=== PATIENT | male | born 1950 | race Caucasian/White ===

== ENCOUNTER 2016-08-16 15:55 | Emergency (ER) | payer MEDICARE, BC ==
[~2016-08-16] VITALS: Ht 193 cm; Wt 140.0 kg
[~2016-08-16 15:55] MED LIST: ALLO300T2 PO; ASCO500C PO; ATEN50TA PO; CETI10CH CHEW; CLIN1CAP6 PO; CLOB0.055 TOPICAL; GLIP-157 PO; IBUP-232 PO; LEVO112T2 PO; METF500T4 PO; METR28.4 TOPICAL; MOME0.1O20 TOPICAL; MULT1TAB84 PO; OMEP40CA2 PO; TAMS0.4C4 PO; [UNRECOGNIZED DRUG - CODE] IM
[2016-08-16 16:04] VITALS: BP 157/94; PULSE 59; RESP 18; TEMP 98.1; O2SAT 98
--- NOTE | 2016-08-16 16:35 | PD ---
HPI Chief Complaint: Pain: Acute or Chronic Time Seen by Provider: 16:15 Travel History International Travel<30 days: No Contact w/Intl Traveler<30days: No Traveled to known affect area: No History of Present Illness HPI 65-year-old male presents emergency department for evaluation of right-sided low back pain radiating down into the right thigh. Symptom onset 5 days. Patient has a history of sciatica. He reports similar symptoms with previous sciatic flares. He reports he was seen by his PCP 4 days ago and put on diclofenac and Flexeril. He reports the pain has persisted. He is requesting something stronger for the pain. He denies fever, incontinence, numbness/ tingling/weakness in lower extremities. PFSH Past Medical History Medical History: Denies Significant Hx Diabetes: Yes (METFORMIN) Patient Takes Glucophage: Yes Diminished Hearing: No GERD: Yes Gout: Yes Integumentary: Yes (plaque psoriasis) Thyroid Disease: Yes Past Surgical History Other Surgery: Yes (pilonidal cyst, adult circumcision ) Social History Alcohol Use: Yes (occ) Tobacco Use: No (quit 28 years ago) Substance Use: No Allergies-Medications (Allergen,Severity, Reaction): Coded Allergies: Darvocet-N 100 (Verified Allergy, Severe, DIFFICULTY BREATHING, 08/16/16) Hydrocodone (Verified Allergy, Severe, DIFFICULTY BREATHING, 08/16/16) Codeine (Verified Adverse Reaction, Intermediate, NIGHTMARES, 08/16/16) Reported Meds & Prescriptions Reported Meds & Active Scripts Active Ibuprofen 600 Mg Tab 600 Mg PO Q6H PRN Reported Glipizide XL (Glipizide) 5 Mg Bisi 5 Mg PO DAILY Take with breakfast or first main meal of the day Cetirizine (Cetirizine HCl) 10 Mg Chew 10 Mg CHEW DAILY Clobetasol Topical (Clobetasol Propionate) 0.05% Cream 1 Applic TOPICAL BID Mometasone Topical (Mometasone Furoate) 0.01 % Oint 1 Applic TOPICAL DAILY Tamsulosin (Tamsulosin HCl) 0.4 Mg Cap 0.4 Mg PO HS Allopurinol 300 Mg Tab 300 Mg PO DAILY Atenolol 50 Mg Tab 50 Mg PO DAILY Levothyroxine (Levothyroxine Sodium) 112 Mcg Tab 224 Mcg PO DAILY Omeprazole 40 Mg Cap 40 Mg PO DAILY Metformin ER (Metformin HCl) 500 Mg Bisi 500 Mg PO BID With evening meal Depo-Testosterone Inj (Testosterone Cypionate) 100 Mg/Ml Inj 200 Mg IM ONCE PRN Review of Systems Except as stated in HPI: all other systems reviewed are Neg General / Constitutional: No: Fever Eyes: No: Visual changes HENT: No: Headaches Cardiovascular: No: Chest Pain or Discomfort Respiratory: No: Shortness of Breath Gastrointestinal: No: Abdominal Pain Genitourinary: No: Dysuria Musculoskeletal: Positive: Pain (left low back radiating down into the left thigh) Physical Exam Narrative GENERAL: Alert, well-appearing male. No acute distress. Patient grimaces and appears uncomfortable when repositioning in bed. SKIN: Focused skin assessment warm/dry. HEAD: Atraumatic. Normocephalic. NECK: Trachea midline. No JVD. CARDIOVASCULAR: Regular rate and rhythm. No murmur appreciated. RESPIRATORY: No accessory muscle use. Clear to auscultation. Breath sounds equal bilaterally. GASTROINTESTINAL: Abdomen soft, non-tender, nondistended. Hepatic and splenic margins not palpable. MUSCULOSKELETAL: No obvious deformities. No clubbing. No cyanosis. No edema. Patient reports pain in the left lateral thigh originating in the low back. The area is nontender. BACK: No thoracic or lumbar midline spine tenderness. No CVA tenderness. Negative straight leg raise. NEUROLOGICAL: Awake and alert. No obvious cranial nerve deficits. Motor grossly within normal limits. Normal speech. 5 out of 5 strength in lower extremities. Normal sensation and extremities. Patient ambulates with a steady gait. PSYCHIATRIC: Appropriate mood and affect; insight and judgment normal. Data Data Last Documented VS Vital Signs Date Time Temp Pulse Resp B/P Pulse Ox O2 Delivery O2 Flow Rate FiO2 08/16/16 16:04 98.1 59 18 157/94 98 MDM Medical Decision Making Medical Screen Exam Complete: Yes Emergency Medical Condition: Yes Differential Diagnosis Sciatica, lumbar strain, herniated disc, Narrative Course 65-year-old male with chief complaint of left low back pain radiating down into the thigh. Patient has history of sciatica. He reports similar symptoms with previous sciatic flares. He was seen by his PCP put on diclofenac and Flexeril. He reports minimal symptom relief. He is requesting something stronger. On exam patient appears quite uncomfortable with movement. He has no spinal tenderness to palpation. His neuro exam is intact. He is ambulating without difficulty. Patient has multiple allergies pain medications. The plan will be to change the patient's muscle relaxer to Robaxin and add Ultram as needed for pain. Patient instructed to continue diclofenac. He agrees to plan. He will follow up with his PCP tomorrow. Return precautions discussed. Diagnosis Primary Impression: Sciatica Qualified Code: M54.32 - Sciatica of left side Referrals: Primary Care Physician Additional Instructions: Continue the diclofenac as prescribed. Discontinue the cyclobenzaprine and start the Robaxin. If he still had continued pain he may take the Ultram 1 tab every 6 hours as needed for pain. Make an appointment for follow-up with her primary care doctor for this week. Return to emergency department if he developed new or worsening symptoms. Scripts Tramadol (Ultram)50 Mg Tab50 Mg PO Q6H PRN (PAIN) #12 TAB Ref 0 Prov:Louisa Pena 08/16/16 Methocarbamol (Robaxin)500 Mg Dgn460 Mg PO TID PRN (MUSCLE SPASM) #15 TAB Prov:Louisa Pena 08/16/16 Disposition: 01 DISCHARGE HOME Condition: Stable Louisa Pena Aug 16, 2016 16:34
[2016-08-16] MEDS ORDERED: ROBA500T PO (16:42)
[2016-08-16] MEDS ORDERED: ULTR50TA5 PO (16:42)
[2016-08-16] MEDS ORDERED: KETOROLAC TROMETHAMINE 60 MG/2 ML (IM) VIAL IM ONE (16:45)
== END 2016-08-16 17:23 | disposition home or self-care (01) ==
LOC: PHEFT 15:55
DX: M54.32 Sciatica, left side (principal); E11.9 Type 2 diabetes mellitus without complications; E07.9 Disorder of thyroid, unspecified; Z79.84 Long term (current) use of oral hypoglycemic drugs; Z87.19 Personal history of other diseases of the digestive system; Z87.39 Personal history of other diseases of the musculoskeletal system and connective tissue; Z87.2 Personal history of diseases of the skin and subcutaneous tissue
CPT/HCPCS: 96372; 99284; J1885

== ENCOUNTER 2016-09-10 09:47 | Emergency (ER) | payer MEDICARE, BC ==
[~2016-09-10] VITALS: Ht 194.3 cm; Wt 140.0 kg
[~2016-09-10 09:47] MED LIST changes: -ASCO500C PO; -CLIN1CAP6 PO; -METR28.4 TOPICAL; -MULT1TAB84 PO; +ROBA500T PO; +ULTR50TA5 PO
[2016-09-10 09:49] VITALS: BP 128/79; PULSE 105; RESP 18; TEMP 98.3; O2SAT 98
[2016-09-10] MEDS ORDERED: KETOROLAC TROMETHAMINE 30 MG/ML (IVP) VIAL IVP ONE (10:30)
[2016-09-10] MEDS ORDERED: CLINDAMYCIN INJ 600 MG in SODIUM CHLORIDE 0.9% INJ 100 ML IV ONE (10:30)
[2016-09-10] MEDS ORDERED: SODIUM CHLORID 0.9% 500 ML INJ 500 ML IV ONE (10:30)
--- NOTE | 2016-09-10 10:31 | PD ---
HPI Chief Complaint: Skin Problem Time Seen by Provider: 10:15 Travel History International Travel<30 days: No Contact w/Intl Traveler<30days: No Traveled to known affect area: No History of Present Illness HPI 65yo M with PMH of DM presents to the ED with c/o right lower extremity redness and pain that started today. States temperature of 99F today. Has some nausea. Denies any chest pain, sob, vomiting, abdominal pain, focal weakness or numbness. Denies any trauma. Pt had similar cellulitis in right leg last year. PFSH Past Medical History Hx Anticoagulant Therapy: No Diabetes: Yes (TYPE 2) Patient Takes Glucophage: Yes (09/09/16 1700) Diminished Hearing: No GERD: Yes Gout: Yes Integumentary: Yes (plaque psoriasis) Thyroid Disease: Yes Tetanus Vaccination: Unknown Past Surgical History Other Surgery: Yes (pilonidal cyst, adult circumcision ) Social History Alcohol Use: Yes (occ) Tobacco Use: No (quit 28 years ago) Substance Use: No Allergies-Medications (Allergen,Severity, Reaction): Coded Allergies: Darvocet-N 100 (Verified Allergy, Severe, DIFFICULTY BREATHING, 09/10/16) Hydrocodone (Verified Allergy, Severe, DIFFICULTY BREATHING, 09/10/16) Codeine (Verified Adverse Reaction, Intermediate, NIGHTMARES, 09/10/16) Reported Meds & Prescriptions Reported Meds & Active Scripts Active Ibuprofen 400 Mg Tab 400 Mg PO Q8H PRN Clindamycin (Clindamycin HCl) 300 Mg Cap 300 Mg PO Q6H 7 Days Ultram (Tramadol HCl) 50 Mg Tab 50 Mg PO Q6H PRN Robaxin (Methocarbamol) 500 Mg Tab 500 Mg PO TID PRN Ibuprofen 600 Mg Tab 600 Mg PO Q6H PRN Reported Glipizide XL (Glipizide) 5 Mg Bisi 5 Mg PO DAILY Take with breakfast or first main meal of the day Cetirizine (Cetirizine HCl) 10 Mg Chew 10 Mg CHEW DAILY Clobetasol Topical (Clobetasol Propionate) 0.05% Cream 1 Applic TOPICAL BID Mometasone Topical (Mometasone Furoate) 0.01 % Oint 1 Applic TOPICAL DAILY Tamsulosin (Tamsulosin HCl) 0.4 Mg Cap 0.4 Mg PO HS Allopurinol 300 Mg Tab 300 Mg PO DAILY Atenolol 50 Mg Tab 50 Mg PO DAILY Levothyroxine (Levothyroxine Sodium) 112 Mcg Tab 224 Mcg PO DAILY Omeprazole 40 Mg Cap 40 Mg PO DAILY Metformin ER (Metformin HCl) 500 Mg Bisi 500 Mg PO BID With evening meal Depo-Testosterone Inj (Testosterone Cypionate) 100 Mg/Ml Inj 200 Mg IM ONCE PRN Review of Systems Except as stated in HPI: all other systems reviewed are Neg Physical Exam Narrative GENERAL: 65yo M not in distress. SKIN: Focused skin assessment warm/dry. HEAD: Atraumatic. Normocephalic. CARDIOVASCULAR: Mild tachycardia at 100bpm. No murmur appreciated. RESPIRATORY: No accessory muscle use. Clear to auscultation. Breath sounds equal bilaterally. GASTROINTESTINAL: Abdomen soft, non-tender, nondistended. MUSCULOSKELETAL: RLE: +Medial erythema and warmth in tibia. Soft compartment. DP 2+. FROM right knee and ankle. NEUROLOGICAL: Awake and alert. No obvious cranial nerve deficits. Motor grossly within normal limits. Normal speech. PSYCHIATRIC: Appropriate mood and affect; insight and judgment normal. Data Data Last Documented VS Vital Signs Date Time Temp Pulse Resp B/P Pulse Ox O2 Delivery O2 Flow Rate FiO2 09/10/16 11:39 98 09/10/16 11:39 99.0 16 121/71 99 Room Air Orders Basic Metabolic Panel (Bmp) (09/10/16 10:24) Complete Blood Count With Diff (09/10/16 10:24) Blood Culture (09/10/16 10:24) Iv Access Insert/Monitor (09/10/16 10:24) Ketorolac Inj (Toradol Inj) (09/10/16 10:30) Clindamycin Inj (Cleocin Inj) (09/10/16 10:30) Lactic Acid Sepsis Protocol (09/10/16 10:24) Sodium Chlorid 0.9% 500 Ml Inj (Ns 500 M (09/10/16 10:30) Ondansetron Inj (Zofran Inj) (09/10/16 10:45) Sodium Chlor 0.9% 1000 Ml Inj (Ns 1000 M (09/10/16 11:30) Labs Laboratory Tests Test 09/10/16 10:45 White Blood Count 13.1 TH/MM3 Red Blood Count 5.46 MIL/MM3 Hemoglobin 16.7 GM/DL Hematocrit 49.3 % Mean Corpuscular Volume 90.3 FL Mean Corpuscular Hemoglobin 30.6 PG Mean Corpuscular Hemoglobin 33.9 % Concent Red Cell Distribution Width 13.7 % Platelet Count 139 TH/MM3 Mean Platelet Volume 8.7 FL Neutrophils (%) (Auto) 89.5 % Lymphocytes (%) (Auto) 4.7 % Monocytes (%) (Auto) 3.6 % Eosinophils (%) (Auto) 0.3 % Basophils (%) (Auto) 1.9 % Neutrophils # (Auto) 11.8 TH/MM3 Lymphocytes # (Auto) 0.6 TH/MM3 Monocytes # (Auto) 0.5 TH/MM3 Eosinophils # (Auto) 0.0 TH/MM3 Basophils # (Auto) 0.2 TH/MM3 CBC Comment DIFF FINAL Differential Comment Sodium Level 138 MEQ/L Potassium Level 4.0 MEQ/L Chloride Level 101 MEQ/L Carbon Dioxide Level 28.2 MEQ/L Anion Gap 9 MEQ/L Blood Urea Nitrogen 19 MG/DL Creatinine 1.30 MG/DL Estimat Glomerular Filtration 55 ML/MIN Rate Random Glucose 134 MG/DL Lactic Acid Level 2.6 mmol/L Calcium Level 9.1 MG/DL [facility] Medical Decision Making Medical Screen Exam Complete: Yes Emergency Medical Condition: Yes Interpretation(s) Laboratory Tests Test 09/10/16 10:45 White Blood Count 13.1 TH/MM3 (4.0-11.0) Red Blood Count 5.46 MIL/MM3 (4.50-5.90) Hemoglobin 16.7 GM/DL (13.0-17.0) Hematocrit 49.3 % (39.0-51.0) Mean Corpuscular Volume 90.3 FL (80.0-100.0) Mean Corpuscular Hemoglobin 30.6 PG (27.0-34.0) Mean Corpuscular Hemoglobin 33.9 % Concent (32.0-36.0) Red Cell Distribution Width 13.7 % (11.6-17.2) Platelet Count 139 TH/MM3 (150-450) Mean Platelet Volume 8.7 FL (7.0-11.0) Neutrophils (%) (Auto) 89.5 % (16.0-70.0) Lymphocytes (%) (Auto) 4.7 % (9.0-44.0) Monocytes (%) (Auto) 3.6 % (0.0-8.0) Eosinophils (%) (Auto) 0.3 % (0.0-4.0) Basophils (%) (Auto) 1.9 % (0.0-2.0) Neutrophils # (Auto) 11.8 TH/MM3 (1.8-7.7) Lymphocytes # (Auto) 0.6 TH/MM3 (1.0-4.8) Monocytes # (Auto) 0.5 TH/MM3 (0-0.9) Eosinophils # (Auto) 0.0 TH/MM3 (0-0.4) Basophils # (Auto) 0.2 TH/MM3 (0-0.2) CBC Comment DIFF FINAL Differential Comment Sodium Level 138 MEQ/L (136-145) Potassium Level 4.0 MEQ/L (3.5-5.1) Chloride Level 101 MEQ/L (98-107) Carbon Dioxide Level 28.2 MEQ/L (21.0-32.0) Anion Gap 9 MEQ/L (5-15) Blood Urea Nitrogen 19 MG/DL (7-18) Creatinine 1.30 MG/DL (0.60-1.30) Estimat Glomerular Filtration 55 ML/MIN (>89) Rate Random Glucose 134 MG/DL (74-106) Lactic Acid Level 2.6 mmol/L (0.4-2.0) Calcium Level 9.1 MG/DL (8.5-10.1) Differential Diagnosis Cellulitis vs. sepsis from cellulitis Narrative Course 65yo M with DM here with redness and pain in right leg consistent with cellulitis. Pt had some nausea and was given zofran. Labs reviewed, leukocytosis at 13.1. Glucose 134. Lactic acid is elevated at 2.6. Pt given NS IVF, toradol and clindamycin IV. Pt reevaluated at bedside and states pain has improved and no longer nauseous. Pt is tolerating PO. I initially wanted to admit pt for IV antibiotics since pt meets sepsis criteria but pt states he wants to try outpatient management first and will return immediately if anything worsens. Pt is well appearing and after joint decision making, agreed to have pt try outpatient antibiotics first since he has not had any and is reliable. Pt is to return to the ED if symptoms worsen. Area of cellulitis is marked with a skin marker. Diagnosis Primary Impression: Cellulitis of right lower extremity Patient Instructions: General Instructions Departure Forms: Tests/Procedures Additional Instructions: Please follow up with your PMD in 1-2 days. Return to the ED immediately if symptoms worsen. Med/Other Pt SpecificInfo: Prescription(s) given Scripts Clindamycin 300 Mg Tet160 Mg PO Q6H 7 Days Ref 0 Prov:Domitila Olsen DO 09/10/16 Disposition: 01 DISCHARGE HOME Condition: Stable Domitila Olsen DO Sep 10, 2016 10:31 Domitila Olsen DO Sep 10, 2016 10:31
[2016-09-10] MEDS ORDERED: ONDANSETRON HCL 4 MG/2 ML VIAL IV PUSH ONE (10:45)
[2016-09-10 10:56] LABS: AUTOMATED NEUTROPHIL # 11.8 TH/MM3 (1.8-7.7); BASOPHIL # 0.2 TH/MM3 (0-0.2); BASOPHIL % 1.9 % (0.0-2.0); EOSINOPHIL % 0.3 % (0.0-4.0); HEMATOCRIT 49.3 % (39.0-51.0); HEMO FLAGS DIFF FINAL; LYMPH % 4.7 % (9.0-44.0); LYMPHOCYTE # 0.6 TH/MM3 (1.0-4.8); MEAN CELL VOLUME 90.3 FL (80.0-100.0); MEAN CORPUSCULAR HEMOGLOBIN 30.6 PG (27.0-34.0); MEAN CORPUSCULAR HGB CONC 33.9 % (32.0-36.0); MONO % 3.6 % (0.0-8.0); NEUT % 89.5 % (16.0-70.0); PLATELET COUNT 139 TH/MM3 (150-450); RED BLOOD COUNT 5.46 MIL/MM3 (4.50-5.90); RED CELL DISTRIBUTION WIDTH 13.7 % (11.6-17.2); WHITE BLOOD COUNT 13.1 TH/MM3 (4.0-11.0)
[2016-09-10 11:10] LABS: BICARBONATE 28.2 MEQ/L (21.0-32.0)
[2016-09-10] MEDS ORDERED: SODIUM CHLOR 0.9% 1000 ML INJ 1,000 ML IV ONE (11:30)
[2016-09-10 11:39] VITALS: BP 121/71; PULSE 96; RESP 16; TEMP 99; O2SAT 99
[2016-09-10] MEDS ORDERED: CLIN1CAP6 PO (12:24)
[2016-09-10] MEDS ORDERED: IBUP400T20 PO (12:24)
[2016-09-10 12:53] LABS: LACTIC ACID GHOST NOT REPORTABLE
== END 2016-09-10 12:36 | disposition home or self-care (01) ==
LOC: PHED 09:47
DX: L03.115 Cellulitis of right lower limb (principal); B95.7 Other staphylococcus as the cause of diseases classified elsewhere; B95.4 Other streptococcus as the cause of diseases classified elsewhere; E11.9 Type 2 diabetes mellitus without complications; Z79.84 Long term (current) use of oral hypoglycemic drugs; Z79.899 Other long term (current) drug therapy
CPT/HCPCS: 80048; 83605; 85025; 86403; 87040; 87205; 96365; 96375; 99284; J1885; J2405; J7040

== ENCOUNTER 2016-09-12 14:58 | Inpatient (IN) | payer MEDICARE, BC ==
[~2016-09-12] VITALS: Ht 194.3 cm; Wt 138.5 kg
[~2016-09-12 14:58] MED LIST changes: +CLIN1CAP6 PO
[2016-09-12 15:01] VITALS: BP 128/75; PULSE 60; RESP 20; TEMP 98.2; O2SAT 97
--- NOTE | 2016-09-12 15:08 | PD ---
HPI Chief Complaint: Skin Problem Time Seen by Provider: 15:05 Travel History International Travel<30 days: No Contact w/Intl Traveler<30days: No Traveled to known affect area: No History of Present Illness HPI 65-year-old male came to the emergency room with history of right lower extremity redness and swelling that has been going on for past 4 days. Patient was seen in the emergency room last which was 2 days ago for this and other times the blood test showed elevated WBC and lactic acid. Patient was asked to stay but he insisted that he wanted to go home. He was discharged home on clindamycin. Patient says that he's been taking clindamycin like he supposed to but the redness is spreading even more. No history of fever or chills but she decided to come back to be admitted at this time. Patient has history of diabetes and his last sugar today was in the 130s. His vital signs were otherwise stable. PFSH Past Medical History Narrative Medical List of his past medical, surgical, social and family history is reviewed from the nursing note. Hx Anticoagulant Therapy: No Diabetes: Yes (TYPE 2) Diminished Hearing: Yes (Hearing Aides) GERD: Yes Gout: Yes Integumentary: Yes (plaque psoriasis) Thyroid Disease: Yes Past Surgical History Other Surgery: Yes (pilonidal cyst, adult circumcision ) Social History Alcohol Use: Yes (occ) Tobacco Use: No (quit 28 years ago) Substance Use: No Allergies-Medications (Allergen,Severity, Reaction): Coded Allergies: Darvocet-N 100 (Verified Allergy, Severe, DIFFICULTY BREATHING, 09/12/16) Codeine (Verified Adverse Reaction, Intermediate, NIGHTMARES, 09/12/16) Comments List of his allergies reviewed from the nursing note. Reported Meds & Prescriptions Reported Meds & Active Scripts Active Clindamycin (Clindamycin HCl) 300 Mg Cap 300 Mg PO Q6H 7 Days Reported Lortab (Hydrocodone-Acetaminophen) 5-325 Mg Tab 1 Tab PO HS Diclofenac Sodium DR (Diclofenac Sodium) 75 Mg Tabdr 75 Mg PO BID Glipizide XL (Glipizide) 5 Mg Bisi 5 Mg PO DAILY Take with breakfast or first main meal of the day Cetirizine (Cetirizine HCl) 10 Mg Chew 10 Mg CHEW DAILY Clobetasol Topical (Clobetasol Propionate) 0.05% Cream 1 Applic TOPICAL BID Mometasone Topical (Mometasone Furoate) 0.01 % Oint 1 Applic TOPICAL DAILY Tamsulosin (Tamsulosin HCl) 0.4 Mg Cap 0.4 Mg PO HS Allopurinol 300 Mg Tab 300 Mg PO DAILY Atenolol 50 Mg Tab 50 Mg PO DAILY Levothyroxine (Levothyroxine Sodium) 112 Mcg Tab 224 Mcg PO DAILY Omeprazole 40 Mg Cap 40 Mg PO DAILY Metformin ER (Metformin HCl) 500 Mg Bisi 500 Mg PO BID With evening meal Depo-Testosterone Inj (Testosterone Cypionate) 100 Mg/Ml Inj 200 Mg IM ONCE PRN Narrative Medication List of his home medications reviewed from the nursing note. Review of Systems Except as stated in HPI: all other systems reviewed are Neg Physical Exam Narrative GENERAL: Awake, alert, obese, moderate distress SKIN: Focused skin assessment warm/dry. Right lower extremity from 2 inches below the knee all the way up to the ankle there is significant erythema and edema. The skin feels warm to touch. No crepitus. HEAD: Atraumatic. Normocephalic. EYES: Pupils equal and round. No scleral icterus. No injection or drainage. ENT: No nasal bleeding or discharge. Mucous membranes pink and moist. NECK: Trachea midline. No JVD. CARDIOVASCULAR: Regular rate and rhythm. No murmur appreciated. RESPIRATORY: No accessory muscle use. Clear to auscultation. Breath sounds equal bilaterally. GASTROINTESTINAL: Abdomen soft, non-tender, nondistended. Hepatic and splenic margins not palpable. MUSCULOSKELETAL: No obvious deformities. No clubbing. No cyanosis. No edema. NEUROLOGICAL: Awake and alert. No obvious cranial nerve deficits. Motor grossly within normal limits. Normal speech. PSYCHIATRIC: Appropriate mood and affect; insight and judgment normal. Data Data Last Documented VS Vital Signs Date Time Temp Pulse Resp B/P Pulse Ox O2 Delivery O2 Flow Rate FiO2 09/12/16 15:01 98.2 60 20 128/75 97 Orders Basic Metabolic Panel (Bmp) (09/12/16 15:13) Complete Blood Count With Diff (09/12/16 15:13) Blood Culture (09/12/16 15:13) ^ Saline Lock (09/12/16 15:13) C-Reactive Protein (Crp) (09/12/16 15:13) Lactic Acid (09/12/16 15:16) Piperacil-Tazo 4.5 Gm Premix (Zosyn 4.5 (09/12/16 15:30) Sodium Chlor 0.9% 1000 Ml Inj (Ns 1000 M (09/12/16 15:30) Sodium Chlor 0.9% 1000 Ml Inj (Ns 1000 M (09/12/16 15:30) Vancomycin Inj (Vancomycin Inj) (09/12/16 15:30) Admit Order (Ed Use Only) (09/12/16 15:44) Labs Laboratory Tests Test 09/12/16 09/12/16 15:20 15:30 White Blood Count 8.0 TH/MM3 Red Blood Count 4.80 MIL/MM3 Hemoglobin 14.8 GM/DL Hematocrit 43.4 % Mean Corpuscular Volume 90.4 FL Mean Corpuscular Hemoglobin 30.9 PG Mean Corpuscular Hemoglobin 34.2 % Concent Red Cell Distribution Width 14.3 % Platelet Count 137 TH/MM3 Mean Platelet Volume 8.9 FL Neutrophils (%) (Auto) 70.7 % Lymphocytes (%) (Auto) 17.3 % Monocytes (%) (Auto) 10.6 % Eosinophils (%) (Auto) 0.9 % Basophils (%) (Auto) 0.5 % Neutrophils # (Auto) 5.7 TH/MM3 Lymphocytes # (Auto) 1.4 TH/MM3 Monocytes # (Auto) 0.8 TH/MM3 Eosinophils # (Auto) 0.1 TH/MM3 Basophils # (Auto) 0.0 TH/MM3 CBC Comment DIFF FINAL Differential Comment Sodium Level 139 MEQ/L Potassium Level 3.9 MEQ/L Chloride Level 103 MEQ/L Carbon Dioxide Level 27.9 MEQ/L Anion Gap 8 MEQ/L Blood Urea Nitrogen 15 MG/DL Creatinine 1.40 MG/DL Estimat Glomerular Filtration 51 ML/MIN Rate Random Glucose 109 MG/DL Calcium Level 8.9 MG/DL C-Reactive Protein 16.50 MG/DL Lactic Acid Level 1.6 mmol/L [facility] Medical Decision Making Medical Screen Exam Complete: Yes Emergency Medical Condition: Yes Medical Record Reviewed: Yes Differential Diagnosis Cellulitis, outpatient treatment failure Narrative Course 3:23 PM I looked at his blood test results from 2 days ago. His blood culture both sets grew staph epidermidis and strep viridans. The sensitivities are pending. Given this I would be to admit him automatically. I have ordered IV vancomycin and Zosyn along with IV fluid as per sepsis protocol. Awaiting for the hospitalist call back. Critical Care Narrative Aggregate critical care time was 30 minutes. Time to perform other separately billable procedures was not included in the critical care time. My time did not include minutes spent treating any other patients simultaneously or on activities that did not directly contribute to the patient's treatment. The services I provided to this patient were to treat and/or prevent clinically significant deterioration that could result in: Sepsis, sepsis protocol, positive blood cultures I provided critical care services requiring my management, as noted below: Chart data review, documentation time, medication orders and management, vital sign assessments/reviewing monitor data, ordering and reviewing lab tests, ordering and interpreting/reviewing x-rays and diagnostic studies, care of the patient and discussion of the patient with the admitting physicians. Procedures EKG Prior to Arrival: No Diagnosis Primary Impression: Cellulitis of right lower extremity Additional Impressions: Sepsis Qualified Code: A40.8 - Other streptococcal sepsis Failure of outpatient treatment Positive blood cultures Admitting Information Admitting Physician Requests: Efraín Vera MD Sep 12, 2016 15:08
[2016-09-12] MEDS ORDERED: PIPERACIL-TAZO 4.5 GM PREMIX 100 ML IV ONE (15:30)
[2016-09-12] MEDS ORDERED: SODIUM CHLOR 0.9% 1000 ML INJ 1,000 ML IV ONE ×2 (15:30)
[2016-09-12] MEDS ORDERED: VANCOMYCIN INJ 1,000 MG in SODIUM CHLOR 0.9% 250 ML INJ 250 ML IV ONE (15:30)
[2016-09-12 15:43] LABS: AUTOMATED NEUTROPHIL # 5.7 TH/MM3 (1.8-7.7); BASOPHIL % 0.5 % (0.0-2.0); EOSINOPHIL # 0.1 TH/MM3 (0-0.4); EOSINOPHIL % 0.9 % (0.0-4.0); HEMATOCRIT 43.4 % (39.0-51.0); HEMO FLAGS DIFF FINAL; LYMPH % 17.3 % (9.0-44.0); LYMPHOCYTE # 1.4 TH/MM3 (1.0-4.8); MEAN CELL VOLUME 90.4 FL (80.0-100.0); MEAN CORPUSCULAR HEMOGLOBIN 30.9 PG (27.0-34.0); MEAN CORPUSCULAR HGB CONC 34.2 % (32.0-36.0); MONO % 10.6 % (0.0-8.0); NEUT % 70.7 % (16.0-70.0); PLATELET COUNT 137 TH/MM3 (150-450); RED CELL DISTRIBUTION WIDTH 14.3 % (11.6-17.2)
[2016-09-12 15:55] LABS: POTASSIUM 3.9 MEQ/L (3.5-5.1)
[2016-09-12 15:58] LABS: BICARBONATE 27.9 MEQ/L (21.0-32.0)
[2016-09-12] MEDS ORDERED: NALOXONE HCL 0.4 MG/ML AMP IV PRN (16:15)
[2016-09-12] MEDS ORDERED: SODIUM CHLORIDE 0.9% FLUSH 10 ML FLUSH IV FLUSH PRN (16:15)
[2016-09-12] MEDS ORDERED: VANCOMYCIN INJ 1,000 MG in SODIUM CHLOR 0.9% 250 ML INJ 250 ML IV SCH (16:15)
[2016-09-12] MEDS ORDERED: DEXTROSE 50% IN WATER 50 ML VIAL(D50) IV PRN (16:15)
[2016-09-12] MEDS ORDERED: Vancomycin Consult Pharmacy 1 EA OTHER SCH (16:15)
[2016-09-12] MEDS ORDERED: GLUCAGON 1 MG/ML VIAL OTHER PRN (16:15)
[2016-09-12] MEDS ORDERED: ONDANSETRON HCL 4 MG/2 ML VIAL IVP PRN (16:15)
--- NOTE | 2016-09-12 16:29 | HHI.HP ---
[facility] Service [facility] Primary Care Physician Non-Staff Admission Diagnosis cellulitis, outpatient treatment failure, positive blood culture Diagnoses: Chief Complaint: right leg swelling and pain Travel History International Travel<30 Days: No Contact w/Intl Traveler <30 Da: No Traveled to Known Affected Are: No History of Present Illness Patient is a 65 year male with DM2 who had 3 days of severe right leg pain and swelling. Pain is worse with ambulation and with lifting the leg. Pain is better with rest. The leg is grossly swollen with bullous cellulitic changes in the lateral aspect. At home fere of up to 102 is described with associated chills and nausea. He was ester in the ER 09/10 and prescribed clindamycin PO but hte pain is worse and the ankle is more red. he has been admitted to the hospital for IV antibiotics Review of Systems Constitutional: DENIES: Diaphoretic episodes, Fatigue, Fever, Weight gain, Weight loss, Chills, Dizziness, Change in appetite, Night Sweats Endocrine: DENIES: Heat/cold intolerance, Polydipsia, Polyuria, Polyphagia Eyes: DENIES: Blurred vision, Diplopia, Eye inflammation, Eye pain, Vision loss , Photosensitivity, Double Vision Ears, nose, mouth, throat: DENIES: Tinnitus, Hearing loss, Vertigo, Nasal discharge, Oral lesions, Throat pain, Hoarseness, Ear Pain, Running Nose, Epistaxis, Sinus Pain, Toothache, Odynophagia Respiratory: DENIES: Apneas, Cough, Snoring, Wheezing, Hemoptysis, Sputum production, Shortness of breath Cardiovascular: COMPLAINS OF: Lower Extremity Edema, DENIES: Chest pain, Palpitations, Syncope, Dyspnea on Exertion, PND, Orthopnea, Claudication Gastrointestinal: DENIES: Abdominal pain, Black stools, Bloody stools, Constipation, Diarrhea, Nausea, Vomiting, Difficulty Swallowing, Anorexia Genitourinary: DENIES: Sexual dysfunction, Urinary frequency, Urinary incontinence, Urgency, Hematuria, Dysuria, Nocturia, Penile Discharge, Testicular Pain, Testicular Swelling Musculoskeletal: DENIES: Joint pain, Muscle aches, Stiffness, Joint Swelling, Back pain, Neck pain Integumentary: DENIES: Abnormal pigmentation, Nail changes, Pruritus, Rash Hematologic/lymphatic: DENIES: Bruising, Lymphadenopathy Immunologic/allergic: DENIES: Eczema, Urticaria Neurologic: DENIES: Abnormal gait, Headache, Localized weakness, Paresthesias, Seizures, Speech Problems, Tremor, Poor Balance Psychiatric: DENIES: Anxiety, Confusion, Mood changes, Depression, Hallucinations, Agitation, Suicidal Ideation, Homicidal Ideation, Delusions Except as stated in HPI: all other systems reviewed are Neg Past Family Social History Past Medical History dm2 hypertension psoriasis Past Surgical History arthroscopy Reported Medications Recently prescribed clindamycin Glipizide XL (Glipizide) 5 Mg Bisi 5 Mg PO DAILY Cetirizine (Cetirizine HCl) 10 Mg Chew 10 Mg CHEW DAILY Clobetasol Topical (Clobetasol Propionate) 0.05% Cream 1 Applic TOPICAL BID Mometasone Topical (Mometasone Furoate) 0.01 % Oint 1 Applic TOPICAL DAILY Tamsulosin (Tamsulosin HCl) 0.4 Mg Cap 0.4 Mg PO HS Allopurinol 300 Mg Tab 300 Mg PO DAILY Atenolol 50 Mg Tab 50 Mg PO DAILY Levothyroxine (Levothyroxine Sodium) 112 Mcg Tab 224 Mcg PO DAILY Omeprazole 40 Mg Cap 40 Mg PO DAILY Metformin ER (Metformin HCl) 500 Mg Bisi 500 Mg PO BID With evening meal Depo-Testosterone Inj (Testosterone Cypionate) 100 Mg/Ml Inj 200 Mg IM ONCE Allergies: Coded Allergies: Darvocet-N 100 (Verified Allergy, Severe, DIFFICULTY BREATHING, 09/12/16) Codeine (Verified Adverse Reaction, Intermediate, NIGHTMARES, 09/12/16) Active Ordered Medications reviewed in the emr Family History mom had dm2 and htn Social History no tobacco occasional etoh Physical Exam Vital Signs Vital Signs Date Time Temp Pulse Resp B/P Pulse Ox O2 Delivery O2 Flow Rate FiO2 09/12/16 15:01 98.2 60 20 128/75 97 Physical Exam GENERAL: This is a well-nourished, well-developed patient, in no apparent distress. SKIN: No rashes, ecchymoses or lesions. Cool and dry. HEAD: Atraumatic. Normocephalic. No temporal or scalp tenderness. EYES: Pupils equal round and reactive. Extraocular motions intact. No scleral icterus. No injection or drainage. ENT: Nose without bleeding, purulent drainage or septal hematoma. Throat without erythema, tonsillar hypertrophy or exudate. Uvula midline. Airway patent. NECK: Trachea midline. No JVD or lymphadenopathy. Supple, nontender, no meningeal signs. CARDIOVASCULAR: Regular rate and rhythm without murmurs, gallops, or rubs. RESPIRATORY: Clear to auscultation. Breath sounds equal bilaterally. No wheezes , rales, or rhonchi. GASTROINTESTINAL: Abdomen soft, non-tender, nondistended. No hepato-splenomegaly , or palpable masses. No guarding. MUSCULOSKELETAL: Extremities without clubbing, cyanosis, or edema. No joint tenderness, effusion, or edema noted. No calf tenderness. Negative Homans sign bilaterally. NEUROLOGICAL: Awake and alert. Cranial nerves II through XII intact. Motor and sensory grossly within normal limits. Five out of 5 muscle strength in all muscle groups. Normal speech. Laboratory Laboratory Tests Test 09/12/16 09/12/16 15:20 15:30 White Blood Count 8.0 Red Blood Count 4.80 Hemoglobin 14.8 Hematocrit 43.4 Mean Corpuscular Volume 90.4 Mean Corpuscular Hemoglobin 30.9 Mean Corpuscular Hemoglobin 34.2 Concent Red Cell Distribution Width 14.3 Platelet Count 137 Mean Platelet Volume 8.9 Neutrophils (%) (Auto) 70.7 Lymphocytes (%) (Auto) 17.3 Monocytes (%) (Auto) 10.6 Eosinophils (%) (Auto) 0.9 Basophils (%) (Auto) 0.5 Neutrophils # (Auto) 5.7 Lymphocytes # (Auto) 1.4 Monocytes # (Auto) 0.8 Eosinophils # (Auto) 0.1 Basophils # (Auto) 0.0 CBC Comment DIFF FINAL Differential Comment Sodium Level 139 Potassium Level 3.9 Chloride Level 103 Carbon Dioxide Level 27.9 Anion Gap 8 Blood Urea Nitrogen 15 Creatinine 1.40 Estimat Glomerular Filtration 51 Rate Random Glucose 109 Calcium Level 8.9 Lactic Acid Level 1.6 Date/Time Procedure Status Source Growth 09/12/16 15:30 Aerobic Blood Culture Received Blood Peripheral Pending 09/12/16 15:30 Anaerobic Blood Culture Received Blood Peripheral Pending Result Diagram: 09/12/16 1520 09/12/16 1520 Assessment and Plan Problem List: (1) Cellulitis of right lower extremity ICD Code: L03.115 Status: Acute Plan: previously given Clindamycin 300 Mg po Q6H 09/10 now with increased redness and pain failed outpatient treatment Admit for iv abx follow repeat BC (2) DM2 (diabetes mellitus, type 2) ICD Code: E11.9 Status: Acute Plan: cont sliding scale for now Physician Certification 2 Midnight Certification Type: Admission for Inpatient Services Order for Inpatient Services The services are ordered in accordance with Medicare regulations or non- Medicare payer requirements, as applicable. In the case of services not specified as inpatient-only, they are appropriately provided as inpatient services in accordance with the 2-midnight benchmark. Estimated LOS (days): 3 3 days is the estimated time the patient will need to remain in the hospital, assuming treatment plan goals are met and no additional complications. Post-Hospital Plan: Jory Alexis MD Sep 12, 2016 16:29
[2016-09-12] MEDS ORDERED: HYDR-3533 PO (16:30)
[2016-09-12] MEDS ORDERED: DICL75TA PO (16:30)
[2016-09-12 17:00] VITALS: BP 112/51; PULSE 55; RESP 16; O2SAT 98
[2016-09-12 20:01] VITALS: BP 136/64; PULSE 55; RESP 18; O2SAT 99
[2016-09-12] MEDS: INSULIN ASPART SUPPLEMENTAL SCALE SQ SCH (21:00)
[2016-09-12] MEDS: SODIUM CHLORIDE 0.9% FLUSH 10 ML FLUSH IV FLUSH SCH (21:00)
[2016-09-12] MEDS: PIPERACIL-TAZO 3.375 GM PREMIX 50 ML IV SCH (22:00)
[2016-09-13] VITALS: BP 159/93; PULSE 56; RESP 18; TEMP 98; O2SAT 100
[2016-09-13] MEDS ORDERED: VANCOMYCIN INJ 2,500 MG in SODIUM CHLORID 0.9% 500 ML INJ 500 ML IV SCH ×2
[2016-09-13] MEDS: PIPERACIL-TAZO 3.375 GM PREMIX 50 ML IV SCH ×4 (04:31→23:05)
[2016-09-13] MEDS: INSULIN ASPART SUPPLEMENTAL SCALE SQ SCH ×4 (06:51→21:00)
[2016-09-13 07:55] VITALS: BP 158/78; PULSE 65; RESP 20; TEMP 97.5; O2SAT 95
[2016-09-13 08:21] LABS: AUTOMATED NEUTROPHIL # 4.8 TH/MM3 (1.8-7.7); BASOPHIL % 0.5 % (0.0-2.0); EOSINOPHIL # 0.1 TH/MM3 (0-0.4); EOSINOPHIL % 1.6 % (0.0-4.0); HEMATOCRIT 45.3 % (39.0-51.0); HEMO FLAGS DIFF FINAL; LYMPH % 20.1 % (9.0-44.0); LYMPHOCYTE # 1.5 TH/MM3 (1.0-4.8); MEAN CELL VOLUME 92.8 FL (80.0-100.0); MEAN CORPUSCULAR HEMOGLOBIN 29.6 PG (27.0-34.0); MEAN CORPUSCULAR HGB CONC 31.9 % (32.0-36.0); MONO % 12.4 % (0.0-8.0); NEUT % 65.4 % (16.0-70.0); PLATELET COUNT 146 TH/MM3 (150-450); RED BLOOD COUNT 4.88 MIL/MM3 (4.50-5.90); RED CELL DISTRIBUTION WIDTH 14.7 % (11.6-17.2); WHITE BLOOD COUNT 7.3 TH/MM3 (4.0-11.0)
[2016-09-13 08:24] LABS: BICARBONATE 26.5 MEQ/L (21.0-32.0)
[2016-09-13] MEDS: CETIRIZINE HCL 10 MG TAB PO SCH (08:33)
[2016-09-13] MEDS: ALLOPURINOL 300 MG TAB PO SCH (08:33)
[2016-09-13] MEDS: glipiZIDE 5 MG TAB PO SCH ×2 (08:34→16:22)
[2016-09-13] MEDS: ATENOLOL 50 MG TAB PO SCH (08:34)
[2016-09-13] MEDS: PANTOPRAZOLE SOD 40 MG DELAYED RELEASE TAB PO SCH (08:34)
[2016-09-13] MEDS: SODIUM CHLORIDE 0.9% FLUSH 10 ML FLUSH IV FLUSH SCH ×2 (08:35→20:55)
[2016-09-13] MEDS: LEVOTHYROXINE SODIUM 112 MCG TAB PO SCH (08:38)
--- NOTE | 2016-09-13 09:04 | HHI.PR ---
Subjective Remarks Patient seen and evaluated in follow-up for right leg cellulitis. Overall greatly improved overnight with IV vancomycin and IV Zosyn. Pain is better and edema is improved. Patient has no new complaints Objective Vitals Vital Signs Date Time Temp Pulse Resp B/P Pulse Ox O2 Delivery O2 Flow Rate FiO2 09/13/16 07:55 97.5 65 20 158/78 95 09/13/16 04:00 09/13/16 00:00 98.0 56 18 159/93 100 09/12/16 22:00 09/12/16 20:01 55 18 136/64 99 Room Air 09/12/16 19:40 62 18 09/12/16 17:00 55 16 112/51 98 09/12/16 15:01 98.2 60 20 128/75 97 I/O 09/12/16 09/12/16 09/12/16 09/13/16 09/13/16 09/13/16 07:00 15:00 23:00 07:00 15:00 23:00 Intake Total 2350 ml 250 ml Balance 2350 ml 250 ml Intake IV Total 2350 ml 250 ml Result Diagram: 09/13/16 0650 09/13/16 0650 Objective Remarks Right lower extremity swelling and bolus lesions with decreased edema and decreased erythema GENERAL: This is a well-nourished, well-developed patient, in no apparent distress. CARDIOVASCULAR: Regular rate and rhythm without murmurs, gallops, or rubs. RESPIRATORY: Clear to auscultation. Breath sounds equal bilaterally. No wheezes , rales, or rhonchi. GASTROINTESTINAL: Abdomen soft, non-tender, nondistended. Normal active bowel sounds MUSCULOSKELETAL: Other 3 Extremities without clubbing, cyanosis, or edema. NEURO: Alert & Oriented x4 to person, place, time, situation. Moves all ext x4 A/P Problem List: (1) Cellulitis of right lower extremity ICD Code: L03.115 Status: Acute Plan: Improving on iv vancomycin and Zosyn follow repeat BC (2) DM2 (diabetes mellitus, type 2) ICD Code: E11.9 Status: Acute Plan: cont sliding scale for now Resume home medications except for metformin, discussed with patient Discharge Planning 1-2 days on po Jory Melara MD Sep 13, 2016 09:04
[2016-09-13] MEDS: VANCOMYCIN INJ 2,000 MG in SODIUM CHLORID 0.9% 500 ML INJ 500 ML IV SCH ×2 (11:47→23:05)
[2016-09-13 12:00] VITALS: BP 143/82; PULSE 57; RESP 20; TEMP 96.7; O2SAT 97
[2016-09-13 16:00] VITALS: BP 154/87; PULSE 62; RESP 20; TEMP 97.1; O2SAT 100
[2016-09-13] MEDS: TAMSULOSIN HCL 0.4 MG CAP PO SCH (20:55)
[2016-09-13 21:16] VITALS: BP 152/87; PULSE 59; RESP 20; TEMP 96.1; O2SAT 97
[2016-09-13 23:32] VITALS: BP 149/81; PULSE 60; RESP 18; TEMP 96.2; O2SAT 95
[2016-09-14] MEDS: PIPERACIL-TAZO 3.375 GM PREMIX 50 ML IV SCH ×4 (04:36→22:48)
[2016-09-14] MEDS: LEVOTHYROXINE SODIUM 112 MCG TAB PO SCH (06:17)
[2016-09-14 08:00] VITALS: BP 128/66; PULSE 57; RESP 17; TEMP 97.6; O2SAT 94
[2016-09-14] MEDS: ATENOLOL 50 MG TAB PO SCH (08:19)
[2016-09-14] MEDS: PANTOPRAZOLE SOD 40 MG DELAYED RELEASE TAB PO SCH (08:19)
[2016-09-14] MEDS: glipiZIDE 5 MG TAB PO SCH ×2 (08:19→16:17)
[2016-09-14] MEDS: CETIRIZINE HCL 10 MG TAB PO SCH (08:19)
[2016-09-14] MEDS: ALLOPURINOL 300 MG TAB PO SCH (08:19)
[2016-09-14] MEDS: SODIUM CHLORIDE 0.9% FLUSH 10 ML FLUSH IV FLUSH SCH ×2 (08:25→20:24)
[2016-09-14] MEDS: INSULIN ASPART SUPPLEMENTAL SCALE SQ SCH ×4 (08:29→20:28)
[2016-09-14] MEDS: ACETAMINOPHEN 325 MG TAB PO PRN (08:33)
[2016-09-14] MEDS ORDERED: diphenhydrAMINE HCL 50 MG CAP PO PRN (10:15)
--- NOTE | 2016-09-14 10:20 | HHI.PR ---
Subjective Remarks Patient is seen and evaluated today in follow-up for cellulitis of the right lower extremity. Overall appears to be improving and patient tolerated antibiotics well. Patient requests Benadryl for sleep as he has chronic insomnia. Objective Vitals Vital Signs Date Time Temp Pulse Resp B/P Pulse Ox O2 Delivery O2 Flow Rate FiO2 09/14/16 08:00 97.6 57 17 128/66 94 09/14/16 04:00 09/13/16 23:32 96.2 60 18 149/81 95 09/13/16 21:16 96.1 59 20 152/87 97 09/13/16 16:00 97.1 62 20 154/87 100 09/13/16 12:00 96.7 57 20 143/82 97 I/O 09/13/16 09/13/16 09/13/16 09/14/16 09/14/16 09/14/16 07:00 15:00 23:00 07:00 15:00 23:00 Intake Total 250 ml 840 ml 665 ml Balance 250 ml 840 ml 665 ml Intake Oral 840 ml IV Total 250 ml 665 ml # Voids 3 2 2 # Bowel Movements 1 0 Result Diagram: 09/13/16 0650 09/13/16 0650 Objective Remarks Right lower extremity with improved swelling and improved erythema GENERAL: This is a well-nourished, well-developed patient, in no apparent distress. CARDIOVASCULAR: Regular rate and rhythm without murmurs, gallops, or rubs. RESPIRATORY: Clear to auscultation. Breath sounds equal bilaterally. No wheezes , rales, or rhonchi. GASTROINTESTINAL: Abdomen soft, non-tender, nondistended. Normal active bowel sounds MUSCULOSKELETAL: Other 3 Extremities without clubbing, cyanosis, or edema. NEURO: Alert & Oriented x4 to person, place, time, situation. Moves all ext x4 A/P Problem List: (1) Cellulitis of right lower extremity ICD Code: L03.115 Status: Acute Plan: Improving on iv vancomycin and Zosyn Repeat blood cultures negative at one day (2) DM2 (diabetes mellitus, type 2) ICD Code: E11.9 Status: Acute Plan: cont sliding scale for now Resume home medications except for metformin, (3) Insomnia ICD Code: G47.00 Status: Acute Plan: Benadryl as needed (4) Obstructive sleep apnea ICD Code: G47.33 Status: Acute Plan: Continue C Pap at night Discharge Planning 1-2 days on po abx Jory Holt MD Sep 14, 2016 10:20
[2016-09-14] MEDS ORDERED: PHARMACY ORDERED LAB ONE (11:45)
[2016-09-14 12:00] VITALS: BP 122/68; PULSE 55; RESP 18; TEMP 97.8; O2SAT 95
[2016-09-14] MEDS: VANCOMYCIN INJ 2,000 MG in SODIUM CHLORID 0.9% 500 ML INJ 500 ML IV SCH ×2 (12:03→22:52)
[2016-09-14 16:00] VITALS: BP 171/92; PULSE 50; RESP 17; TEMP 97.5; O2SAT 99
[2016-09-14 20:00] VITALS: BP 172/82; PULSE 50; RESP 18; TEMP 97.3; O2SAT 99
[2016-09-14] MEDS: TAMSULOSIN HCL 0.4 MG CAP PO SCH (20:23)
[2016-09-15] VITALS: BP 152/87; PULSE 59; RESP 18; TEMP 97.8; O2SAT 95
[2016-09-15] MEDS: PIPERACIL-TAZO 3.375 GM PREMIX 50 ML IV SCH ×2 (04:12→09:00)
[2016-09-15] MEDS: ACETAMINOPHEN 325 MG TAB PO PRN (04:55)
[2016-09-15] MEDS: LEVOTHYROXINE SODIUM 112 MCG TAB PO SCH (06:00)
[2016-09-15] MEDS: INSULIN ASPART SUPPLEMENTAL SCALE SQ SCH (07:00)
[2016-09-15 08:00] VITALS: BP 142/68; PULSE 53; RESP 16; TEMP 98.3; O2SAT 96
[2016-09-15] MEDS: SODIUM CHLORIDE 0.9% FLUSH 10 ML FLUSH IV FLUSH SCH (08:34)
[2016-09-15] MEDS: ALLOPURINOL 300 MG TAB PO SCH (09:00)
[2016-09-15] MEDS: glipiZIDE 5 MG TAB PO SCH (09:00)
[2016-09-15] MEDS: PANTOPRAZOLE SOD 40 MG DELAYED RELEASE TAB PO SCH (09:00)
[2016-09-15] MEDS: CETIRIZINE HCL 10 MG TAB PO SCH (09:00)
[2016-09-15] MEDS: ATENOLOL 50 MG TAB PO SCH (09:00)
[2016-09-15] MEDS ORDERED: AMOX875T2 PO (10:31)
--- NOTE | 2016-09-15 10:32 | HHI.DCPOC ---
Discharge Care Plan Diagnosis: (1) Cellulitis of right lower extremity Goals to Promote Your Health * To prevent worsening of your condition and complications * To maintain your health at the optimal level Directions to Meet Your Goals Take your medications as prescribed Follow your dietary instruction Follow activity as directed Keep your appointments as scheduled Take your immunizations and boosters as scheduled If your symptoms worsen call your PCP, if no PCP go to Urgent Care Center or Emergency Room Smoking is Dangerous to Your Health. Avoid second hand smoke Call the 24-hour hour crisis hotline for domestic abuse at Jory Holt MD Sep 15, 2016 10:32
--- NOTE | 2016-09-15 10:45 | HHI.DS ---
[facility] Discharge Summary Admission Date Sep 12, 2016 at 15:45 Discharge Date: Sep 15, 2016 Admitting Diagnosis cellulitis, outpatient treatment failure, positive blood culture (1) Cellulitis of right lower extremity ICD Code: L03.115 (2) DM2 (diabetes mellitus, type 2) ICD Code: E11.9 (3) Insomnia ICD Code: G47.00 (4) Obstructive sleep apnea ICD Code: G47.33 Procedures none Brief History - From Admission Patient is a 65 year male with DM2 who had 3 days of severe right leg pain and swelling. Pain is worse with ambulation and with lifting the leg. Pain is better with rest. The leg is grossly swollen with bullous cellulitic changes in the lateral aspect. At home fere of up to 102 is described with associated chills and nausea. He was ester in the ER 09/10 and prescribed clindamycin PO but hte pain is worse and the ankle is more red. he has been admitted to the hospital for IV antibiotics CBC/BMP: 09/13/16 0650 09/13/16 0650 Significant Findings Laboratory Tests Test 09/12/16 09/13/16 09/14/16 15:20 06:50 11:05 Platelet Count 137 TH/MM3 146 TH/MM3 (150-450) (150-450) Neutrophils (%) (Auto) 70.7 % (16.0-70.0) Monocytes (%) (Auto) 10.6 % 12.4 % (0.0-8.0) (0.0-8.0) Creatinine 1.40 MG/DL (0.60-1.30) Estimat Glomerular Filtration 51 ML/MIN (>89) 67 ML/MIN (>89) Rate Random Glucose 109 MG/DL 120 MG/DL (74-106) (74-106) C-Reactive Protein 16.50 MG/DL (0.00-0.30) Mean Corpuscular Hemoglobin 31.9 % Concent (32.0-36.0) Vancomycin Level Trough 12.3 MCG/ML (5.0-10.0) PE at Discharge Right lower extremity with improved swelling and improved erythema GENERAL: This is a well-nourished, well-developed patient, in no apparent distress. CARDIOVASCULAR: Regular rate and rhythm without murmurs, gallops, or rubs. RESPIRATORY: Clear to auscultation. Breath sounds equal bilaterally. No wheezes , rales, or rhonchi. GASTROINTESTINAL: Abdomen soft, non-tender, nondistended. Normal active bowel sounds MUSCULOSKELETAL: Other 3 Extremities without clubbing, cyanosis, or edema. NEURO: Alert & Oriented x4 to person, place, time, situation. Moves all ext x4 Pt update on day of discharge Patient seen and evaluated in follow-up for cellulitis of the right lower extremity. Overall quite improved. Blood cultures are negative. Patient doing much better. Pain is minimal. Discharge plans discussed with patient and nursing team. Hospital Course Patient seen and treated with cellulitis and failure of outpatient treatment. He did well on IV Zosyn, vancomycin, BC were negative. patient Discussed with PCP office Pt Condition on Discharge: Good Discharge Disposition: Discharge Home Discharge Time: > 30 minutes Discharge Instructions DIET: Follow Instructions for: Diabetic Diet Activities you can perform: Regular-No Restrictions Follow up Referrals: PCP Follow-up - 09/23/16 with eran New Medications: Amoxicillin-Clavulanate (Amoxicillin-Clavulanate) 875-125 mg Tab 875 MG PO BID not for use in CrCl <30 mL/minute Infection #20 Ref 0 TAB Continued Medications: Allopurinol (Allopurinol) 300 Mg Tab 300 MG PO DAILY Gout #30 Ref 0 TAB Atenolol (Atenolol) 50 Mg Tab 50 MG PO DAILY Blood Pressure Management #30 Ref 0 TAB Cetirizine (Cetirizine) 10 Mg Chew 10 MG CHEW DAILY Allergies Ref 0 TAB Clobetasol Topical (Clobetasol Topical) 0.05% Cream 1 APPLIC TOPICAL BID #15 Ref [address] (Diclofenac Sodium DR) 75 Mg Tabdr 75 MG PO BID #60 Ref 0 TAB Glipizide ER (Glipizide XL) 5 Mg Bisi 5 MG PO DAILY Take with breakfast or first main meal of the day Blood Sugar Management #30 Ref 0 TAB Hydrocodone-Acetaminophen (Lortab) 5-325 Mg Tab 1 TAB PO HS PAIN Ref 0 TAB Levothyroxine (Levothyroxine) 112 Mcg Tab 224 MCG PO DAILY Thyroid #30 Ref 0 TAB Metformin ER (Metformin ER) 500 Mg Bisi 500 MG PO BID With evening meal Blood Sugar Management Ref 0 TAB Mometasone Topical (Mometasone Topical) 0.01 % Oint 1 APPLIC TOPICAL DAILY #1 Ref 0 TUBE Omeprazole (Omeprazole) 40 Mg Cap 40 MG PO DAILY #30 Ref 0 CAP Tamsulosin (Tamsulosin) 0.4 Mg Cap 0.4 MG PO HS Manage Prostate Problems #30 Ref 0 CAP Testosterone Cypionate Inj (Depo-Testosterone Inj) 100 Mg/Ml Inj 200 MG IM ONCE PRN every 2 weeks #1 Ref 0 INJECTION Discontinued Medications: Clindamycin (Clindamycin) 300 Mg Cap 300 MG PO Q6H Infection Days 7 Ref 0 CAP Additional Information appt with pcp 09/23 11:30 am Jory Holt MD Sep 15, 2016 10:45
[2016-09-15 12:00] VITALS: BP 150/91; PULSE 50; RESP 17; TEMP 97; O2SAT 96
== END 2016-09-15 12:12 | disposition home or self-care (01) | DRG 603 ==
LOC: PHED 14:58 → PHEDA 15:45 → PH3B 20:36
PROVIDERS: ADMIT Hospitalist; ATTEND Hospitalist
DX: L03.115 Cellulitis of right lower limb (principal); I10 Essential (primary) hypertension; E07.9 Disorder of thyroid, unspecified; E11.9 Type 2 diabetes mellitus without complications; M10.9 Gout, unspecified; L40.0 Psoriasis vulgaris; K21.9 Gastro-esophageal reflux disease without esophagitis; H91.93 Unspecified hearing loss, bilateral; Z79.84 Long term (current) use of oral hypoglycemic drugs; G47.33 Obstructive sleep apnea (adult) (pediatric); Z87.891 Personal history of nicotine dependence
CPT/HCPCS: 80048; 80202; 82948; 83605; 85025; 86140; 87040; 96374; J1815; J2543; J3370; J7030; J7040; J7050